=== PATIENT | male | born 1995 | race Asian ===

== ENCOUNTER 2016-07-20 15:10 | Emergency (ER) | payer OTHER ==
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
[2016-07-20 16:12] LABS: ABSOLUTE LYMPHOCYTES (AUTO) 1.6 10^3/uL (0.5-4.7); ABSOLUTE MONOCYTES (AUTO) 0.5 10^3/uL (0.1-1.4); ABSOLUTE NEUT (AUTO) 5.3 10^3/uL (1.7-8.2); BASOPHILS % (AUTO) 0.6 % (0-2); EOSINOPHILS % (AUTO) 0.5 % (0-6); HEMATOCRIT 46.2 % (37.9-51.0); HEMOGLOBIN 15.8 g/dL (13.5-17.0); HGB HCT DIFFERENCE 1.2; MEAN CORPUSCULAR HEMOGLOBIN 30.8 pg (27.0-33.4); MEAN CORPUSCULAR HGB CONC 34.1 g/dL (32.0-36.0); MEAN CORPUSCULAR VOLUME 90 fl (80-97); MONOCYTES % (AUTO) 6.9 % (3-13); RED BLOOD COUNT 5.12 10^6/uL (4.35-5.55); RED CELL DISTRIBUTION WIDTH 13.1 % (11.5-14.0); WHITE BLOOD COUNT 7.4 10^3/uL (4.0-10.5)
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
[2016-07-20 16:30] LABS: ALANINE AMINOTRANSFERASE 32 U/L (21-72); ALBUMIN 4.6 g/dL (3.5-5.0); ALKALINE PHOSPHATASE 110 U/L (38-126); ANION GAP 14 (5-19); ASPARTATE AMINO TRANSFERASE 17 U/L (17-59); BILIRUBIN,TOTAL 0.7 mg/dL (0.2-1.3); BLOOD UREA NITROGEN 13 mg/dL (7-20); CALCIUM 9.7 mg/dL (8.4-10.2); CARBON DIOXIDE 30 mmol/L (22-30); CHLORIDE 100 mmol/L (98-107); CREATININE RESULT 0.92 mg/dL (0.52-1.25); GLUCOSE 92 mg/dL (75-110); POTASSIUM 4.4 mmol/L (3.6-5.0); SODIUM 143.7 mmol/L (137-145); TOTAL PROTEIN 7.7 g/dL (6.3-8.2)
[2016-07-20 16:32] LABS: ALCOHOL < 10 mg/dL (NONE DETECTED)
[2016-07-20 17:02] LABS: APPEARANCE,URINE CLEAR; BILIRUBIN,URINE NEGATIVE (NEGATIVE); GLUCOSE, URINE NEGATIVE (NEGATIVE); KETONES,URINE NEGATIVE (NEGATIVE); LEUKOCYTE ESTERASE,URINE NEGATIVE (NEGATIVE); NITRITE,URINE NEGATIVE (NEGATIVE); PROTEIN,URINE NEGATIVE (NEGATIVE); URINE SPECIFIC GRAVITY 1.017; UROBILINOGEN,URINE NEGATIVE mg/dL (<2.0)
[2016-07-20] MEDS ORDERED: HALOPERIDOL 5 MG TABLET PO SCH (18:00)
[2016-07-20] MEDS ORDERED: HALOPERIDOL 5 MG TABLET PO ONE (18:22)
[2016-07-20] MEDS: BENZTROPINE MESYLATE 1 MG TABLET PO SCH (22:54)
--- NOTE | 2016-07-20 22:59 | EKG REPORT ---
SEVERITY:- NORMAL ECG - SINUS RHYTHM : Confirmed by: Eliot Hicks 20-Jul-2016 22:58:32
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
[2016-07-21] MEDS: HALOPERIDOL 5 MG TABLET PO SCH ×2 (09:50→22:15)
--- NOTE | 2016-07-21 10:21 | ER Document Report ---
Doctor's Note Notes: 07/21/16 10:20 Rounds: Chart reviewed and patient interviewed. Interview is very limited because the patient speaks very little Cymraes and I speak no Mandarin Hungarian. Patient reportedly was expressing some homicidal thoughts. His vital signs are normal. His lab work is normal. Patient has been started on Haldol twice a day. He remains under involuntary commitment. Patient appears to be medically stable for transfer or discharge. Sunday Benitez M.D.
[2016-07-21 17:10] LABS: URINE BARBITURATES SCREEN NEGATIVE; URINE METHADONE SCREEN NEGATIVE; URINE PHENCYCLIDINE SCREEN NEGATIVE
[2016-07-21] MEDS: BENZTROPINE MESYLATE 1 MG TABLET PO SCH (22:15)
[2016-07-22] MEDS: HALOPERIDOL 5 MG TABLET PO SCH (10:01)
--- NOTE | 2016-07-22 10:04 | ER Document Report ---
Doctor's Note Notes: 07/22/16 10:03 Rounds: Chart reviewed and patient interviewed. Interviewing is again a problem because of the language differences. Patient says he's feeling better. His vital signs are all normal. His lab studies have all been normal. Patient has been started on Haldol twice a day. Patient appears to be medically stable for transfer or discharge. Awaiting mental health's recommendations. Sunday Benitez M.D.
--- NOTE | 2016-07-22 11:06 | PSYCHOLOGICAL NOTE ---
Psych Note - Psych Note Psych Note: Conducted check in with patient who is a 21 year old male under IVC at [facility] ED. Patient today offers no conversation beyond stating he wants to go home today. Patient will not engage in any additional attempts at redirecting him. Patient otherwise was observed sleeping throughout the day, and minimally interacting with his mother. Patient appeared to be A&O aeb responding to his name, stating he was ready to leave the hospital, etc. Patient's mood is anxious with flat/odd affect. Patient does not answer questions regarding thoughts of wanting to harm himself or others, and also does not answer questions regarding psychosis. Patient does look around the room frequently, but it is unclear if he is responding to internal stimuli. Patient's thought processes were guarded. Conversational speech was low and soft for prosody. Intellectual abilities were estimated within average range. Attention and focus were poor. Insight, judgment, and impulse control were poor. 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 At this time and in this setting there is not enough information to make a more specific diagnosis; however, it does not appear to be substance induced. Patient is recommended to continue under IVC and seek 24 hour inpatient psychiatric care. Patient presents with possible initial onset psychosis and required both pharmacological and therapeutic intervention to assist with understanding his illness, the importance of medication management, and psychoeducation regarding his illness and treatments. I consulted with Dr. Glover in regards to the care and management of this patient. ED MD is in agreement with disposition and recommendations.
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
[2016-07-22 13:51] VITALS: BP 125/77
== END 2016-07-22 13:39 | disposition home or self-care (01) ==
LOC: ER 15:10
DX: F99 Mental disorder, not otherwise specified (principal); R45.851 Suicidal ideations; R44.0 Auditory hallucinations; R44.1 Visual hallucinations; R45.850 Homicidal ideations; F20.0 Paranoid schizophrenia
CPT/HCPCS: 36415; 80053; 80307; 81001; 85025; 93005; 93010; 99285

== ENCOUNTER 2017-06-07 13:26 | Emergency (ER) | payer OTHER ==
[2017-06-07 13:47] VITALS: BP 141/91
--- NOTE | 2017-06-07 15:23 | ER Document Report ---
ED General - General Chief Complaint: Medication Refill Stated Complaint: MEDICATION REFILL Time Seen by Provider: 06/07/17 15:16 Mode of Arrival: Ambulatory Information source: Patient TRAVEL OUTSIDE OF THE [place] IN LAST 30 DAYS: No - HPI Patient complains to provider of: med refill Onset: Other - pt states he ran out of his meds recently. He has an apt with [facility] next month. He denies suicidal or homicidal ideation. - Related Data Allergies/Adverse Reactions: No Known Allergies Allergy (Verified 06/07/17 13:47) Past Medical History - Social History Smoking Status: Never Smoker Cigarette use (# per day): No Chew tobacco use (# tins/day): No Smoking Education Provided: No Family History: Reviewed & Not Pertinent Renal/ Medical History: Denies: Hx Peritoneal Dialysis Psychiatric Medical History: Reports: Hx Schizophrenia Review of Systems - Review of Systems Constitutional: No symptoms reported EENT: No symptoms reported Cardiovascular: No symptoms reported Respiratory: No symptoms reported Gastrointestinal: No symptoms reported Musculoskeletal: No symptoms reported Neurological/Psychological: No symptoms reported -: Yes All other systems reviewed and negative Physical Exam - Vital signs Vitals: Temp Pulse Resp BP Pulse Ox 97.6 F 105 H 16 141/91 H 96 06/07/17 13:43 06/07/17 13:43 06/07/17 13:43 06/07/17 13:43 06/07/17 13:43 - General General appearance: Appears well In distress: None - Respiratory Respiratory status: No respiratory distress Breath sounds: Normal - Cardiovascular Rhythm: Regular Heart sounds: Normal auscultation - Neurological Neuro grossly intact: Yes - Psychological Associated symptoms: Normal affect, Normal mood Course - Vital Signs Vital signs: Temp Pulse Resp BP Pulse Ox 97.6 F 105 H 16 141/91 H 96 06/07/17 13:43 06/07/17 13:43 06/07/17 13:43 06/07/17 13:43 06/07/17 13:43 Discharge - Discharge Clinical Impression: Medication refill Condition: Stable Disposition: HOME, SELF-CARE Additional Instructions: rest, take meds as prescribed, return if worse Prescriptions: Benztropine Mesylate [Benztropine Mesylate 2 mg Tablet] 1 mg PO DAILY #60 tab Olanzapine 5 mg PO BID #90 tablet Referrals: FUAD GERMAN MD [ACTIVE STAFF] - Follow up as needed
== END 2017-06-07 16:00 | disposition home or self-care (01) ==
LOC: ER 13:26
DX: Z76.0 Encounter for issue of repeat prescription (principal)
CPT/HCPCS: 99281

== ENCOUNTER → 2017-09-13 | Outpatient (CLI) | payer OTHER ==
[2017-09-13 12:51] LABS: TRIGLYCERIDES 238 mg/dL (<150)
[2017-09-13 13:02] LABS: DIRECT LDL 93 mg/dL (<100)
[2017-09-13 13:06] LABS: VLDL CHOLESTEROL 47.6 mg/dL (10-31)
== END ==
LOC: CCC 11:44
DX: E78.1 Pure hyperglyceridemia (principal)
CPT/HCPCS: 36415; 80061; 83036; 84443

== ENCOUNTER → 2019-06-02 | Outpatient (CLI) | payer OTHER ==
[2019-06-02 12:06] LABS: ABSOLUTE LYMPHOCYTES (AUTO) 1.8 10^3/uL (0.5-4.7); ABSOLUTE MONOCYTES (AUTO) 0.4 10^3/uL (0.1-1.4); ABSOLUTE NEUT (AUTO) 3.9 10^3/uL (1.7-8.2); BASOPHILS % (AUTO) 0.5 % (0-2); EOSINOPHILS % (AUTO) 0.6 % (0-6); HEMATOCRIT 48.6 % (37.9-51.0); HEMOGLOBIN 16.8 g/dL (13.5-17.0); LYMPHOCYTES % (AUTO) 28.9 % (13-45); MEAN CORPUSCULAR HEMOGLOBIN 30.8 pg (27.0-33.4); MEAN CORPUSCULAR HGB CONC 34.5 g/dL (32.0-36.0); MEAN CORPUSCULAR VOLUME 89 fl (80-97); MONOCYTES % (AUTO) 6.7 % (3-13); PLATELET COUNT 194 10^3/uL (150-450); RED BLOOD COUNT 5.45 10^6/uL (4.35-5.55); RED CELL DISTRIBUTION WIDTH 12.8 % (11.5-14.0); SEGMENTED NEUTROPHILS % (AUTO) 63.3 % (42-78); TOTAL CELLS COUNTED % (AUTO) 100 %; WHITE BLOOD COUNT 6.2 10^3/uL (4.0-10.5)
[2019-06-02 12:17] LABS: ALBUMIN 4.8 g/dL (3.5-5.0); ALKALINE PHOSPHATASE 87 U/L (38-126); ANION GAP 11 (5-19); ASPARTATE AMINO TRANSFERASE 31 U/L (17-59); BILIRUBIN,DIRECT 0.1 mg/dL (0.0-0.4); BILIRUBIN,TOTAL 1.2 mg/dL (0.2-1.3); BLOOD UREA NITROGEN 10 mg/dL (7-20); CALCIUM 9.7 mg/dL (8.4-10.2); CARBON DIOXIDE 27 mmol/L (22-30); CHLORIDE 102 mmol/L (98-107); CHOLESTEROL 153.18 mg/dL (0-200); GLUCOSE 92 mg/dL (75-110); POTASSIUM 4.1 mmol/L (3.6-5.0); TOTAL PROTEIN 8.2 g/dL (6.3-8.2); TRIGLYCERIDES 213 mg/dL (<150)
[2019-06-02 12:27] LABS: DIRECT LDL 96 mg/dL (<100)
[2019-06-02 12:30] LABS: VLDL CHOLESTEROL 42.6 mg/dL (10-31)
== END ==
LOC: CCC 11:21
DX: E78.5 Hyperlipidemia, unspecified (principal)
CPT/HCPCS: 36415; 80053; 80061; 83036; 85025